=== PATIENT | female | born 1950 | race Caucasian/White ===

== ENCOUNTER 2021-06-10 19:27 | Emergency (ER) | payer MEDICARE, SELFPAY ==
[~2021-06-10] VITALS: Ht 170.2 cm; Wt 95.3 kg
[2021-06-10 19:56] VITALS: BP_SYST 150
--- NOTE | 2021-06-10 19:56 | NUR ---
Report given to Gladys PEREZ.
--- NOTE | 2021-06-10 19:56 | NUR ---
Placed in room 8 . Placed on motorbike courier, blood pressure machine and pulse oximeter. To gown for exam. Side rails up.
--- NOTE | 2021-06-10 20:10 | NUR ---
DREA ACCUCK [address] DR KOWALSKI AWARE ON EXAM OF PT; PT TALKATIVE AOX4 RESP EVEN STATES ON FALL SYNCOPAL EPISODE LACERATION BACK OF HEAD UINJURY LOWER LIP AND UPPER SPINE MOVES ALL EAXTREMITIES WELL
[2021-06-10] MEDS ORDERED: AMPICILLIN SODIUM/SULBACTAM NA 3 GM in NS 100 ML IV ONE (20:45)
[2021-06-10] MEDS ORDERED: AMPICILLIN SODIUM/SULBACTAM NA 3 GM VIAL IM ONE (20:45)
[2021-06-10] MEDS ORDERED: LIDOCAINE 2%, 20 ML MDV INJ ONE (20:45)
[2021-06-10 21:06] LABS: BASOPHILS % (AUTO) 0.3 % (0.0-2.0); EOSINOPHILS # (AUTO) 0.2 K/uL (0.0-0.4); EOSINOPHILS % (AUTO) 1.5 % (0.0-4.0); HEMATOCRIT 37.8 % (36-48); HEMOGLOBIN 12.5 g/dL (12.0-16.0); LYMPHOCYTES # (AUTO) 2.3 K/uL (1.0-5.5); LYMPHOCYTES % (AUTO) 14.8 % (20.5-51.5); MEAN CORPUSCULAR HEMOGLOBIN 30 pg (27-31); MEAN CORPUSCULAR HGB CONC 33 % (32-36); MEAN CORPUSCULAR VOLUME 91 fL (79.0-98.0); MONOCYTES # (AUTO) 1.2 K/uL (0.0-1.0); MONOCYTES % (AUTO) 7.5 % (1.7-9.3); NEUTROPHILS # (AUTO) 11.7 K/uL (1.8-7.7); NEUTROPHILS % (AUTO) 75.9 % (40.0-70.0); PLATELET COUNT (AUTO) 275 K/uL (130-430); RED BLOOD CELL COUNT(AUTO) 4.17 MIL/uL (4.2-6.2); RED CELL DISTRIBUTION WIDTH 14.3 % (9.0-15.0); WHITE BLOOD COUNT (AUTO) 15.4 K/uL (4.8-10.8)
[2021-06-10 21:11] LABS: ANION GAP 10 (5-15); CALCIUM 9.7 mg/dL (8.4-11.0); CHLORIDE 102 mmol/L (98-107); CREATININE 0.97 mg/dL (0.55-1.30); GLUCOSE 106 mg/dL (70-99); POTASSIUM 4.7 mmol/L (3.5-5.1); SODIUM SERUM 137 mmol/L (136-145); UREA NITROGEN, BLOOD 24 mg/dL (8-21)
[2021-06-10 21:15] LABS: INR 0.9 (0.8-1.2)
[2021-06-10 21:27] LABS: ALANINE AMINOTRANSFERASE 41 U/L (12-78); ALBUMIN 3.7 g/dL (3.4-4.8); ASPARTATE AMINOTRANSFERASE 21 U/L (10-37); TOTAL BILIRUBIN 0.3 mg/dL (0.0-1.0)
[2021-06-10 21:29] LABS: ALCOHOL, BLOOD < 3 mg/dL (<10)
--- NOTE | 2021-06-10 21:33 | NUR ---
IV STARTED LT HAND 22G
--- NOTE | 2021-06-10 21:40 | NUR ---
EKG DONE; PCXR DONE
--- NOTE | 2021-06-10 21:53 | NUR ---
PT TO CT VIA [facility]
[2021-06-10] MEDS ORDERED: LIDOCAINE 1% 10 MG/ML, 20 ML MDV INJ ONE (23:15)
--- NOTE | 2021-06-10 23:21 | NUR ---
DR IVEY TO RE EXAM PT AND PREPPED LACERATION TO LIP AND SUTURE AND PREP BACK OF HEAD LACERATION PT CONTINUES ON MONITOR AND PULSE OX
[2021-06-11] MEDS ORDERED: ASPIRIN 325 MG TABLET PO ONE (00:15)
--- NOTE | 2021-06-11 00:23 | NUR ---
DR IVEY TALKING TO CALLIE ON TRANSFERRING PT
--- NOTE | 2021-06-11 01:33 | NUR ---
PT ASSISTED TO BR ;GAIT IN BR STEADY ; ASSISTED TO LORENE; ON MONITOR AND PULSE OX;NEW ICE PK GIVEN
--- NOTE | 2021-06-11 02:33 | NUR ---
WAITING FOR ANKENY TO CALL FOR HOSPITAL
--- NOTE | 2021-06-11 03:06 | NUR ---
PT RESTING NO DISTRESS NOTED CONTINUES WAITING FOR LEDESMA PLACEMENT
[2021-06-11 03:47] LABS: BILIRUBIN,URINE NEGATIVE (NEGATIVE); BLOOD, URINE NEGATIVE (NEGATIVE); CLARITY/URINE CLEAR (CLEAR); COLOR,URINE YELLOW (YELLOW); GLUCOSE,URINE NEGATIVE (NEGATIVE); KETONES,URINE TRACE (NEGATIVE); LEUKOCYTE ESTERASE ,URINE NEGATIVE (NEGATIVE); NITRITE, URINE NEGATIVE (NEGATIVE); PROTEIN URINE NEGATIVE (NEGATIVE); UROBILINOGEN,URINE 0.2 (0.2-1.0)
[2021-06-11 03:59] LABS: BARBITURATE, URINE NEGATIVE (NEG <=200); BENZODIAZEPINE, URINE NEGATIVE (NEG <=150); CANNABINOID, URINE NEGATIVE (NEG <=50); COCAINE, URINE NEGATIVE (NEG <=150); METHAMPHETAMINES SCREEN,URINE NEGATIVE (NEG <=500); OPIATE, URINE NEGATIVE (NEG <=100); PHENCYCLIDINE SCREEN,URINE NEGATIVE (NEG <=25); UR TRICYCLIC ANTIDEPRESSANTS NEGATIVE (NEG <=300); URINE AMPHETAMINE NEGATIVE (NEG <=500); URINE METHADONE NEGATIVE (NEG <=200); URINE OXYCODONE SCREEN NEGATIVE (NEG <=100); URINE PROPOXYPHENE SCREEN NEGATIVE (NEG <=300)
--- NOTE | 2021-06-11 04:06 | NUR ---
[facility]CE[facility] DR
--- NOTE | 2021-06-11 04:43 | NUR ---
[facility] HERE GIVEN REPORT AND PAPERWORK ON PT FOR TRANSPORT TO [facility] PT STABLE
[2021-06-11 04:45] VITALS: BP_SYST 133
== END 2021-06-11 04:43 | disposition short-term general hospital (02) ==
LOC: SED 19:27
DX: S01.511A Laceration without foreign body of lip, initial encounter (principal); R55 Syncope and collapse; I10 Essential (primary) hypertension; E11.9 Type 2 diabetes mellitus without complications; Z91.013 Allergy to seafood; Z20.822 Contact with and (suspected) exposure to COVID-19; Z79.899 Other long term (current) drug therapy; W18.39XA Other fall on same level, initial encounter; Y93.89 Activity, other specified; Y92.89 Other specified places as the place of occurrence of the external cause; Y99.8 Other external cause status
CPT/HCPCS: 12011; 36415; 70450; 71045; 72125; 72128; 76376; 80053; 80307; 81003; 82962; 84484; 85025; 85610; 85730; 87040; 87426; 93005; 96365; 99285; G0482; J0295; J2001